=== PATIENT | male | born 1990 | race Caucasian/White ===

== ENCOUNTER 2016-02-27 16:08 | Emergency (ER) | payer OTHER ==
[2016-02-27 16:39] VITALS: TEMP 98; BMI 41.9
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
[2016-02-27 17:58] VITALS: BP 130/80; PULSE 99
== END 2016-02-27 17:54 | disposition home or self-care (01) ==
LOC: EDMC 16:08
DX: S16.1XXA Strain of muscle, fascia and tendon at neck level, initial encounter (principal); M25.511 Pain in right shoulder; V49.40XA Driver injured in collision with unspecified motor vehicles in traffic accident, initial encounter; Y93.9 Activity, unspecified; Y92.410 Unspecified street and highway as the place of occurrence of the external cause
CPT/HCPCS: 72050; 99283

== ENCOUNTER 2016-03-11 10:31 | Emergency (ER) | payer OTHER ==
[2016-03-11 10:52] VITALS: TEMP 98.4; BMI 42.6
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
[2016-03-11 12:24] VITALS: BP 158/102; PULSE 101
== END 2016-03-11 11:43 | disposition home or self-care (01) ==
LOC: EDMC 10:31
DX: S46.911A Strain of unspecified muscle, fascia and tendon at shoulder and upper arm level, right arm, initial encounter (principal); V49.9XXA Car occupant (driver) (passenger) injured in unspecified traffic accident, initial encounter
CPT/HCPCS: 99282